=== PATIENT | female | born 1945 | race Caucasian/White ===

== ENCOUNTER → 2024-06-15 09:00 | Outpatient (REF) | payer MEDICARE, OTHER, SELFPAY ==
[2024-06-15 11:35] LABS: % Basophils 0.4 % (0-2); % Eosinophils 0.4 % (0-6); % Immature Granulocytes 0.8 % (0-0.5); % Monocytes 8.6 % (1.7-9.3); % Neutrophils 65.8 % (42.2-75.2); Absolute Immature Granulocytes 0.1 10^3/uL (0-0.05); Absolute Lymphocytes 1.8 10^3/uL (1.2-3.4); Absolute Monocytes 0.6 10^3/uL (0.1-0.6); Absolute Neutrophils 4.9 10^3/uL (1.4-6.5); Hematocrit 43.8 % (37.0-47.0); Hemoglobin 14.6 g/dL (12.0-16.0); Mean Corp Hgb Conc. 33.3 g/dL (33.0-37.0); Mean Corpuscular Hgb 32.7 pg (27.0-31.0); Mean Platelet Volume 12.2 fL (7.4-10.4); Nucleated Red Blood Cells % 0 %; Platelet Count 207 10^3/uL (130-400); Red Blood Cell Count 4.47 10^6/uL (4.20-5.40); White Blood Cell Count 7.5 10^3/uL (4.8-10.8)
[2024-06-15 11:36] LABS: INR 1.21; PT 15.8 Sec (11.4-14.6)
[2024-06-15 11:42] LABS: ALT (SGPT) 25 U/L (0-35); AST (SGOT) 31 U/L (14-36); Albumin 4.5 g/dl (3.5-5.0); Alkaline Phosphatase 74 U/L (38-126); Blood Urea Nitrogen 21 mg/dl (7-17); Calcium 10.2 mg/dl (8.4-10.2); Carbon Dioxide 26 mmol/L (22-30); Chloride 102 mmol/L (98-107); Glucose 96 mg/dl (70-99); Magnesium 2.1 mg/dl (1.6-2.3); Potassium 4.7 mmol/L (3.5-5.1); Sodium 137 mmol/L (135-145); Total Bilirubin 0.9 mg/dl (0.2-1.3); Total Protein 7.2 g/dl (6.3-8.2); eGFR > 60.00
== END ==
LOC: SDSPAT 09:00
PROVIDERS: ATTENDING PHYSICIAN Internal Medicine Cardiovascular Disease; FAMILY PHYSICIAN Family Medicine; OTHER PHYSICIAN Internal Medicine Cardiovascular Disease
DX: I48.91 Unspecified atrial fibrillation (principal)
CPT/HCPCS: 36415; 75572; 80053; 83735; 85025; 85610; 86850; 86900; 86901; 93005; Q9967

== ENCOUNTER 2024-06-29 07:02 | Day surgery (SDC) | payer MEDICARE, OTHER, SELFPAY ==
[2024-06-29 07:40] VITALS: BMI 25.4
== END 2024-06-29 09:54 | disposition home or self-care (01) ==
LOC: CATH 07:02
PROVIDERS: ATTENDING PHYSICIAN Nuclear Medicine Nuclear Cardiology; FAMILY PHYSICIAN Family Medicine; OTHER PHYSICIAN Internal Medicine Cardiovascular Disease
DX: I48.91 Unspecified atrial fibrillation (principal); I08.1 Rheumatic disorders of both mitral and tricuspid valves; I70.0 Atherosclerosis of aorta
CPT/HCPCS: 93312; 93320; 93325

== ENCOUNTER 2024-07-05 08:23 | Day surgery (SDC) | payer MEDICARE, OTHER, SELFPAY ==
[2024-06-15 11:01] VITALS: BMI 25.6
[2024-07-05] VITALS (11 sets, daily range): BP systolic 105–151; BP diastolic 48–101; BMI 25.6
--- NOTE | 2024-07-05 11:09 | ITS.CL.ABL ---
[employer] - Ablation
Ablation
Procedure Report:
Primary Pet Supplies Salesperson: Gil Arellano MD
Procedure Date: 07/05/2024
Patient History:
Patient is a very pleasant 78-year-old female with past medical history significant for hypertension, prior CVA (2019), symptomatic paroxysmal atrial fibrillation on anticoagulation and dronedarone.
See H&P for complete details.
Indication:
Symptomatic paroxysmal atrial fibrillation
Recurrence despite antiarrhythmic medical therapy
Arrhythmia Specific History:
Prior Medical Therapies for Rate and Rhythm Control:
X Beta-osvaldo
[ ] Calcium channel-osvaldo
[ ] Amiodarone
X Dronederone
[ ] Sotalol
[ ] Flecainide
[ ] Dofetilide
[ ] Options limited by bradycardia
[ ] Options limited by comorbid renal disease
Prior Procedural Therapies for AF/AFL:
X Cardioversion
[ ] Pulmonary Vein Isolation
[ ] Posterior Wall Isolation
[ ] Additional lines (Specify)
[ ] Surgical Thibodeaux-MAZE or PVI (Specify)
Procedure Performed:
X AF ablation procedure (97173) -- includes LA/CS pacing, trans-septal, 3D mapping, + ICE
[ ] +IV drug (29666)
[ ] +Other Arrhythmia (30713)
[ ] +Other AF Line/ablation (82897)
X + Ultrasound for Vascular Access (96149); images recorded to record.
Risks and expected recovery has been explained in detail. Alternative options have been explored, and in a shared-decision making fashion we have decided that this was the most appropriate procedure.
Method
NPO status confirmed. Grounding pad applied. Defibrillator pads applied. Continuous surface ECG, pulse oximetry, and blood pressure were monitored. Procedure was performed under general anesthesia, with anesthesia services.
Both groins were clipped, prepped with Chloraprep, and draped in sterile fashion. Time out was called. Local anesthesia administered with bupivacaine. The right femoral vein was accessed for catheter placement, using ultrasound guidance,
micro-puncture needle/wire, and modified seldinger technique. 3 sheaths were placed. The following catheters were used:
[ ] Tacticath SE (D/F Curve) ablation catheter
X Viewflex 9Fr ICE catheter
X Inquiry decapolar 6Fr diagnostic catheter
[ ] CRD Hex 6Fr
[ ] Arctic Front Advance Cryoballoon ([ ]28mm[ ]23mm)
[ ] Achieve Advance mapping catheter ([ ]15mm[ ]20mm)
X FlexCath Contour 10 Fr with PulseSelect PFA Catheter
X Advisor HD Grid Mapping Catheter, SE
[ ] Acuson AcuNav 8 Fr ICE catheter
[ ]Other: [ ]
Intracardiac ultrasound (ICE) was carefully advanced into the right atrium to guide sheath placement over a J-wire, catheter placement, guide trans-septal puncture, identify potential complications, identify anatomic structures and ensure proper
contact between ablation catheter and tissue.
Heparin was given prior to trans-septal puncture. Heparin was given to achieve and maintain a target ACT of 300-400 seconds throughout the procedure.
Trans-septal access was performed under ICE guidance. The trans-septal puncture was performed with a SafeSept wire through a Brockenbrough needle assembly through the steerable sheath. The wire was visualized as it entered the LSPV and system
advanced under ICE guidance and fluoroscopy into the LA. The Brockenbrough needle assembly, SafeSept wire and sheath dilator were removed under negative pressure. LA pressure was measured and recorded.
ICE and 3D mapping was performed to identify relevant cardiac structures. A careful 3D map was created to assess for regions of low-voltage and abnormal electrogram signals using HD grid mapping catheter and PulseSelect catheter. Additional mapping
was performed as outlined below.
Prior to ablation, glycopyrrolate was provided. PulseSelect catheter was advanced over J-wire to the ostium of each vein. Pulmonary vein isolation was performed with ostial and antral lesions in a circumferential manner. Contact was visualized via
EAM, ICE, fluoroscopy, and EGM signals. Following completion of ablation lesions, a post-ablation voltage/activation map was performed in sinus rhythm. Entrance and exit block were confirmed for each vein.
Catheter and sheath were removed from the left atrium and post-ablation intracardiac echo evaluation was consistent with pre-ablation with no changes and no pericardial effusion and there is no left atrial thrombus or left ventricle thrombus seen.
Electrophysiology study was performed. Hemostasis was obtained with figure of 8 stitch for each groin and with manual pressure. Protamine was used for reversal.
Estimated Blood Loss
5 cc
Complications
None
Fluoroscopy: 2.9 minutes; 4.4 mGy; DAP 1.16
Baseline Intervals:
Rhythm: SR
DC: 154 ms
QRS: 72 ms
QT: 423 ms
QTc: 451 ms
A-A: 887 ms
R-R: 887 ms
Post-Procedure Intervals:
DC: 163 ms
QRS: 69 ms
QT: 430 ms
QTc: 460 ms
AVWB: 370 ms
AERP: 600/290 ms
Recommendations
- Bedrest with straight-leg precautions as ordered
- Anticipate same day discharge if patient meeting clinical metrics
- Resume home medications as indicated
- Continue Dronedarone for 3 mo post ablation then plan to discontinue
- Ok to resume anticoagulation tonight if patient and groin sites stable
- PPI daily for 30 days
- Plan for follow-up in office as scheduled
Shin Church DO
Clinical Cardiac Store Shopper
cc: Jarrod Gama MD; Gil Arellano MD
[2024-07-05 12:14] LABS: ACT-LR - POC 284 Seconds (116-155)
[2024-07-05 12:30] LABS: ACT-LR - POC 398 Seconds (116-155)
[2024-07-05 13:01] LABS: ACT-LR - POC 384 Seconds (116-155)
[2024-07-05 13:21] LABS: ACT-LR - POC 174 Seconds (116-155)
[2024-07-05 14:47] LABS: ACT-LR - POC > 397 Seconds (116-155)
--- NOTE | 2024-07-05 16:53 | W.PN.UPDATE ---
Update Note
Progress Note Update
Pt seen post PFA. Right groin site without ht/bleeding, non tender. Post EKG SB 50s, no acute changes. Resume eliquis tonight, continue other meds as before. Followup at [facility] arranged and with Dr. Arellano thereafter. Home later today if groin
site/tele remain stable.
== END 2024-07-05 18:20 | disposition home or self-care (01) ==
LOC: CATH 08:23
PROVIDERS: ATTENDING PHYSICIAN Internal Medicine Cardiovascular Disease; FAMILY PHYSICIAN Family Medicine; OTHER PHYSICIAN Internal Medicine Cardiovascular Disease
DX: I48.0 Paroxysmal atrial fibrillation (principal); I10 Essential (primary) hypertension; R00.2 Palpitations; R53.83 Other fatigue; Z79.01 Long term (current) use of anticoagulants; Z79.899 Other long term (current) drug therapy; E78.5 Hyperlipidemia, unspecified; E03.9 Hypothyroidism, unspecified; I69.354 Hemiplegia and hemiparesis following cerebral infarction affecting left non-dominant side; I69.398 Other sequelae of cerebral infarction; R26.89 Other abnormalities of gait and mobility; Z79.890 Hormone replacement therapy; G47.00 Insomnia, unspecified; Z87.891 Personal history of nicotine dependence
CPT/HCPCS: C1732; C1769; C1894; C1766; C1733; 76937; 85347; 86900; 86901; 93005; 93656